=== PATIENT | female | born 1995 | race Hispanic/Latino ===

== ENCOUNTER 2020-05-24 09:58 | Inpatient (IN) | payer MEDICAID, OTHER, SELFPAY ==
[2020-05-24] MEDS ORDERED: Famotidine/PF 20 mg/2ml Vial SLOW IVP PRN (10:23)
[2020-05-24] MEDS ORDERED: Bicitra 30 ML UDCUP PO PRN (10:23)
[2020-05-24] MEDS ORDERED: hydrALAZINE 20 MG/ML VIAL SLOW IVP PRN ×2 (10:26→16:37)
[2020-05-24] MEDS ORDERED: Promethazine HCl 25 MG/ML VIAL IM PRN ×3 (10:26→16:37)
[2020-05-24] MEDS ORDERED: Ondansetron PF 4 MG/2 ML Vial IVP PRN ×3 (10:26→16:37)
[2020-05-24] MEDS ORDERED: CEFAZOLIN 2 GM in Premix Bag 1 BAG IVPB SCH (10:30)
[2020-05-24 11:05] LABS: Hemoglobin 12.5 g/dL (12.0-16.0); Mean Corpuscular Hemoglobin 34.2 pg (27.0-31.0); Mean Corpuscular Volume 97.9 fL (78.0-98.0); Mean Platelet Volume 7.3 fL (7.4-10.4); Platelet Count 206 thou/uL (130-400); RBC Distribution Width 11.8 % (11.5-14.5); Red Blood Cell (RBC) Count 3.64 mill/uL (4.20-5.40); White Blood Cell (WBC) Count 8.3 thou/uL (4.8-10.8)
[2020-05-24] MEDS ORDERED: Meperidine HCl/PF 25 MG/ML VIAL SLOW IVP PRN (11:11)
[2020-05-24] MEDS ORDERED: L&D-Morphine 4 MG/ML VIAL SLOW IVP PRN (11:11)
[2020-05-24] MEDS ORDERED: Ketorolac Tromethamine 30 MG/ML VIAL IVP PRN (11:11)
[2020-05-24] MEDS ORDERED: diphenhydrAMINE 50 MG/ML VIAL IVP PRN (11:11)
[2020-05-24] MEDS ORDERED: Naloxone HCl 0.4 mg/ml Vial IV PRN (11:11)
[2020-05-24] MEDS ORDERED: Ondansetron HCl/PF 4 MG/2 ML Vial IVP PRN (11:11)
[2020-05-24] MEDS ORDERED: HYDROmorphone 2 MG/ML VIAL SLOW IVP PRN (11:11)
[2020-05-24] MEDS ORDERED: Naloxone HCl 0.4 mg/ml Vial IVP PRN ×2 (11:11)
[2020-05-24] MEDS ORDERED: Promethazine HCl 25 MG SUPP PR PRN (11:11)
[2020-05-24 11:15] VITALS: BMI 29.0
[2020-05-24] MEDS ORDERED: Morphine PF 10 MG/10 ML VIAL ONE (11:15)
[2020-05-24] MEDS ORDERED: Oxytocin 10 UNITS/ML VIAL ONE ×2 (11:15→13:18)
[2020-05-24] MEDS ORDERED: Sodium Chloride 0.9% 0 ML ONE (11:15)
[2020-05-24] MEDS ORDERED: Ondansetron PF 4 MG/2 ML Vial ONE (11:15)
[2020-05-24] MEDS ORDERED: Ketorolac Tromethamine 30 MG/ML VIAL ONE (11:15)
[2020-05-24] MEDS ORDERED: Communication Order-Pharmacy FS SCH (11:15)
[2020-05-24] MEDS ORDERED: PHENYLEPHRINE-NS 100 MCG/ML 10 ML SYRINGE ONE (11:15)
[2020-05-24] MEDS ORDERED: ePHEDrine 50 MG/ML VIAL ONE (11:15)
[2020-05-24 11:51] LABS: HBSAg Index 0.14 S/CO (0-0.99); Hep B Surf Ag Non-Reactive S/CO (NonReactive); Syphilis Antibody Nonreactive (Nonreactive); Syphilis Antibody Index 0.05 S/CO (<1.00 Non-Reactive)
--- NOTE | 2020-05-24 12:08 | PDOC.FPROB ---
FMR OB H&P: HPI - History of Present Illness Chief Complaint: pLTCS for breech Indentification: 24yo at 39.2wks History of Present Illness: 24yo at 39.2wks presents for pLTCS for breech. Denies VB/discharge, LOF, CTX. Endorses FM. Primary Care Physician: Dr Holley FMR OB H&P: Current - Care : 3 Para: 2001 Gestational age: 39.2 - OB Labs Blood type: O RH: positive Antibody Screen: negative HIV: negative RPR: negative HepBsAg: negative Quad screen: negative FMR OB H&P: History - Past Medical History PMH: Unremarkable - OB History OB History: 2 SVDs - Surgical History Sx History: Denies - Social History Social History: Denies tobacco, alcohol, drug use. - Family History Family History: Denies FMR OB H&P: Medications - Current Home Medications: Medication Instructions Recorded Confirmed Type Iron 18 mg PO DAILY 05/24/20 05/24/20 History Pnv No.95/Ferrous Fum/Folic AC 1 tab PO DAILY 05/24/20 05/24/20 History [ Vitamin Tablet] Allergies/Adverse Reactions: Allergies Allergy/AdvReac Type Severity Reaction Status Date / Time No Known Allergies Allergy Verified 04/26/16 18:39 FMR OB H&P: ROS - Review of Systems General: denies: fever/chills, fatigue Eyes: denies: vision changes, floaters Cardiovascular: denies: chest pain, edema Gastrointestinal: denies: abdominal pain, nausea, vomiting Genitourinary (Female): denies: vaginal discharge, vaginal bleeding, contrac tions Neurologic: denies: weakness, headache Integumentary: denies: rash, lesions FMR OB H&P: Vital Signs - Maternal Vital signs: Vital Signs - First Documented Temp Pulse Resp BP Pulse Ox 98.6 F 98 16 120/78 100 05/24/20 10:34 05/24/20 10:34 05/24/20 10:34 05/24/20 10:34 05/24/20 10:34 - Heart Tones Baseline: 140 Variability: moderate Acceleration: present Deceleration: absent Category: category 1 Solen contractions every: Irregular FMR OB H&P: Physical Exam - Physical Exam General: NAD, awake, alert and oriented HEENT: normocephalic and atraumatic, MMM, conjunctiva clear, oropharynx clear Neck: supple, trachea midline Heart: pulses present, no edema General: no respiratory distress Abdomen: soft, gravid, non-tender, bowel sound present Musculoskeletal: pulses present, no misalignment/asymmetry, no atrophy Neurological: cranial nerves II through XII intact Skin: no rash, good tugor Psychiatric: intact recent and remote memory, good judgement and insight, normal mood and affect - Pelvic Exam Vulva: normal hair distribution, no masses, no lesions, no blood Membranes: Intact Presentation: Breech by US FMR OB H&P: Results - Labs Lab results: Laboratory Results - last 24 hr 05/24/20 05/24/20 05/24/20 10:47 10:47 10:47 WBC 8.3 RBC 3.64 L Hgb 12.5 Hct 35.7 L MCV 97.9 MCH 34.2 H MCHC 35.0 RDW 11.8 Plt Count 206 MPV 7.3 L Syphilis IgG/IgM Ab Nonreactive Blood Type O POSITIVE Antibody Screen NEGATIVE FMR OB H&P: A/P Disposition: 24yo at 39.2wks presents for pLTCS for breech presentation - NPO since 2330 yesterday. - Verified breech presentation. - Anceph for abx Discussion: Date/Time: 05/24/20 1207 This H&P was discussed with Dr. Marques who agrees with the above documentation and plan. Addendum - Attending - Attending Attestation Date/Time: 05/24/20 1420 I personally evaluated the patient and discussed the management with Dr. Hyde. I agree with the History, Examination, Assessment and Plan documented above. Primary for breech presentation.
[2020-05-24] MEDS ORDERED: Fentanyl 100 MCG/2 ML VIAL ONE (13:10)
--- NOTE | 2020-05-24 14:04 | PDOC.OPDEL ---
OB Operative/Delivery Note Delivery Dr/Surgeon: Jerald Assist: Barrett Pre-Delivery Diagnosis: breech, scheduled section Procedure/Post Delivery Dx: primary low transverse CS Weeks gestation: 39 Anesthesia: spinal - Findings A Sex: female Weight: 7 lb 4.369 oz - 1 min: 8 - 5 min: 8 - Additional Findings/Plan Placenta delivered: spontaneous findings: low transverse hysterotomy without extension, normal uterus, normal tubes, normal ovaries Estimated blood loss: 395 Post delivery plan: routine recovery
--- NOTE | 2020-05-24 15:01 | OP ---
DATE OF PROCEDURE: 05/24/2020 PREOPERATIVE DIAGNOSES: 1. A 39-week intrauterine . 2. Breech presentation. POSTOPERATIVE DIAGNOSES: 1. A 39-week intrauterine . 2. Breech presentation. PROCEDURE PERFORMED: Primary low-transverse section via Pfannenstiel. BOOMBOAT OPERATOR: Trupti Hyde MD, Tumbler Drier Operator. ANESTHESIA: Spinal. COMPLICATIONS: None. QUANTITATIVE BLOOD LOSS: 395 mL. INDICATIONS: The patient was scheduled for primary for breech presentation. Upon arrival to Labor and Delivery, breech presentation was confirmed. FINDINGS: Vigorous female infant in ismael breech presentation. Apgars 8 and 8. weight pending. Nuchal cord x2. Normal uterus, tubes, and ovaries. DESCRIPTION OF PROCEDURE: The patient was taken to the operating room where spinal anesthesia was obtained without difficulty. She was prepared and draped in the normal sterile fashion in the dorsal supine position with a leftward tilt. A Pfannenstiel skin incision was made with a scalpel and carried down to the underlying layer of fascia. The fascia was incised in midline and extended laterally with Leach scissors. The fascia was then grasped with Michelle clamps, tented up, and the rectus muscles dissected off sharply. The rectus muscles were in the midline and the peritoneum was identified and entered bluntly. The peritoneum was then extended superiorly and inferiorly with blunt traction. The bladder was identified diffusely and an Nehemiah retractor was placed in the abdomen. The lower uterine segment was incised in a transverse fashion with the scalpel. It was extended with cephalocaudal traction. The infant's buttocks were delivered followed by the legs atraumatically, followed by the rest of the body, arms, and then head. There was noted to be a nuchal cord x2. The 's nose and mouth were suctioned with bulb suction. The cord was clamped and cut. The infant was handed off to awaiting nursery team. The placenta was delivered spontaneously. The uterus was exteriorized and cleared off all clots and debris. It was then returned to the abdomen. The uterine incision was repaired in a running locked fashion with 1 Monocryl in 2 layers with good hemostasis. The abdomen was copiously irrigated. Again, good hemostasis was noted. The retractor was removed from the abdomen. The fascia was then closed in a running fashion with 0 PDS and the skin was closed with ashley. The patient tolerated the procedure well. Sponge, lap, and needle counts were correct x2. The patient was taken to recovery room in stable condition. Job ID: [id number] [facility]
[2020-05-24] MEDS ORDERED: Varicella virus, LIVE 0.5 ML VIAL SC ONE (16:37)
[2020-05-24] MEDS ORDERED: Lanolin Ointment 7 GM TUBE TOP PRN (16:37)
[2020-05-24] MEDS ORDERED: Misoprostol 200 MCG TAB PR PRN (16:37)
[2020-05-24] MEDS ORDERED: Bisacodyl 10 MG SUPP PR PRN (16:37)
[2020-05-24] MEDS ORDERED: diphenhydrAMINE 25 MG CAP PO PRN (16:37)
[2020-05-24] MEDS ORDERED: Adacel (T-DAP) 0.5 ML SYRINGE IM ONE (16:37)
[2020-05-24] MEDS ORDERED: Simethicone Chewable 80 MG TAB PO PRN (16:37)
[2020-05-24] MEDS ORDERED: Methylergonovine 0.2 MG/ML VIAL IM PRN (16:37)
[2020-05-24] MEDS ORDERED: Measles/Mumps/Rubella 10 MCG/0.5 ML VIAL SC ONE (16:37)
[2020-05-24] MEDS ORDERED: NS / Oxytocin 40 units/1000ml 1,000 ML IV SCH (16:45)
[2020-05-24] MEDS ORDERED: Ketorolac Tromethamine 30 MG/ML VIAL IVP SCH (18:00)
[2020-05-24] MEDS: Docusate Calcium (SURFAK) 240 MG CAP PO SCH (22:23)
[2020-05-24] MEDS: Ferrous Sulfate 325 MG TAB PO SCH (22:24)
[2020-05-24] MEDS: Lactated Ringer's 1,000 ML IV SCH (22:51)
[2020-05-24] MEDS ORDERED: Zolpidem Tartrate 5 MG TAB PO PRN (23:30)
[2020-05-24] MEDS ORDERED: HYDROcodone/Acetaminophen 5/325 mg Tablet PO PRN (23:30)
[2020-05-25] MEDS: Lactated Ringer's 1,000 ML IV SCH ×3 (01:51→17:10)
[2020-05-25 06:47] LABS: Hemoglobin 11.6 g/dL (12.0-16.0); Mean Corpuscular HGB CONC 33.9 g/dL (32.0-36.0); Mean Corpuscular Hemoglobin 33.2 pg (27.0-31.0); Mean Corpuscular Volume 97.8 fL (78.0-98.0); Mean Platelet Volume 7.4 fL (7.4-10.4); Platelet Count 183 thou/uL (130-400); RBC Distribution Width 11.9 % (11.5-14.5); White Blood Cell (WBC) Count 8.1 thou/uL (4.8-10.8)
--- NOTE | 2020-05-25 07:13 | PDOC.PP ---
Post Progress Note Post Day #: 1 Subjective: POD#1 from pLTCS. Pain well controlled with Ibuprofen. Has not started ambulating yet. Tolerated cookies overnight and plans to order breakfast. Breast and bottle feeding. Denies heavy VB. Has not passed gas or had BM. PO intake tolerated: yes Flatus: no Ambulation: no Vital Signs (12 hours) Temp Pulse Resp BP Pulse Ox 05/25/20 00:00 97.6 F 77 15 98/56 L 05/24/20 20:02 98.2 F 67 18 112/58 L 99 Weight Weight 67.585 kg - Physical Examination General: NAD Cardiovascular: no m/r/g, RRR Respiratory: clear to auscultation bilaterally, non-labored breathing Abdominal: appropriately TTP Fundus firm & at: below umbilicus Skin: CS incision dry & intact (covered with dressing) Neurological: no gross focal deficits Psychiatric: A&Ox3, normal affect Result Diagrams: 05/25/20 06:25 Additional Labs: Post Labs Hep Bs Antigen Non-Reactive S/CO (NonReactive) 05/24/20 10:47 Blood Type O POSITIVE 05/24/20 10:47 - Assessment/Plan 24yo now delivered pLTCS for breech at 39.2wks - POD #1 - Continue routine PP care. Encouraged ambulation. Addendum - Attending - Attending Attestation Date/Time: 05/25/20 5632 I personally evaluated the patient and discussed the management with Dr. Hyde. I agree with the History, Examination, Assessment and Plan documented above. Continue routine POD1 orders today.
[2020-05-25] MEDS: Prenatal Vitamin 1 TAB PO SCH (09:52)
[2020-05-25] MEDS: Ferrous Sulfate 325 MG TAB PO SCH ×2 (09:52→22:00)
[2020-05-25] MEDS: HYDROcodone/Acetaminophen 5/325 mg Tablet PO PRN ×2 (09:53→17:26)
[2020-05-25] MEDS: Docusate Calcium (SURFAK) 240 MG CAP PO SCH ×2 (09:53→22:00)
[2020-05-25] MEDS ORDERED: FLU VACC QS2020-21(6MOS UP)/PF 60 MCG/0.5 ML SYRINGE IM ONE (11:30)
[2020-05-25] MEDS: Ibuprofen 800 MG TAB PO SCH ×2 (14:08→22:00)
[2020-05-26] MEDS: Lactated Ringer's 1,000 ML IV SCH ×2 (00:54→09:53)
[2020-05-26] MEDS: Ibuprofen 800 MG TAB PO SCH (05:00)
--- NOTE | 2020-05-26 06:57 | PDOC.PP ---
Post Progress Note Post Day #: 2 Subjective: POD#2 from pLTCS. Pain well controlled with Ibuprofen. Ambulating, tolerating PO. Breast and bottle feeding. Denies heavy VB, or difficulty with urination. Passing gas. PO intake tolerated: yes Flatus: yes Ambulation: yes Vital Signs (12 hours) Temp Pulse Resp BP Pulse Ox 05/26/20 05:07 98.1 F 60 18 108/62 05/26/20 01:00 98.6 F 61 16 102/64 05/25/20 20:35 98.4 F 68 16 99/57 L 98 Weight Weight 67.585 kg - Physical Examination General: NAD Cardiovascular: no m/r/g, RRR Respiratory: clear to auscultation bilaterally, non-labored breathing Abdominal: + bowel sounds, appropriately TTP Skin: CS incision dry & intact Neurological: no gross focal deficits Psychiatric: A&Ox3, normal affect Result Diagrams: 05/25/20 06:25 Additional Labs: Post Labs Hep Bs Antigen Non-Reactive S/CO (NonReactive) 05/24/20 10:47 Blood Type O POSITIVE 05/24/20 10:47 - Assessment/Plan 24yo now delivered pLTCS for breech at 39.2wks - POD #2 - Continue routine PP care. - Plaza removed - Follow up in 1wk with Dr Kishan Santa: Likely dc home later today
[2020-05-26 08:40] VITALS: BP 109/57; TEMP 98.6
[2020-05-26] MEDS ORDERED: FLU VACC QS2020-21(6MOS UP)/PF 60 MCG/0.5 ML SYRINGE IM ONE (09:15)
[2020-05-26] MEDS: Prenatal Vitamin 1 TAB PO SCH (09:54)
[2020-05-26] MEDS: Ferrous Sulfate 325 MG TAB PO SCH (09:54)
[2020-05-26] MEDS: Docusate Calcium (SURFAK) 240 MG CAP PO SCH (09:54)
[2020-05-26] MEDS: HYDROcodone/Acetaminophen 5/325 mg Tablet PO PRN (11:04)
== END 2020-05-26 11:45 | disposition home or self-care (01) | DRG 788 ==
LOC: L&D 09:58 → 3SW 15:42
PROVIDERS: ADMIT Obstetrics & Gynecology; ATTEND Obstetrics & Gynecology
PROC: 10D00Z1 Extraction of Products of Conception, Low, Open Approach (ICD-10-PCS; principal; 2020-05-24)
DX: O32.1XX0 Maternal care for breech presentation, not applicable or unspecified (principal); Z3A.39 39 weeks gestation of pregnancy; Z37.0 Single live birth; O69.81X0 Labor and delivery complicated by cord around neck, without compression, not applicable or unspecified
CPT/HCPCS: 36415; 51702; 85027; 86780; 86850; 86900; 86901; 87340; J0690; J1885; J2270; J2405; J3010; J3490